=== PATIENT | male | born 1965 | race African-American/Black ===

== ENCOUNTER 2018-04-11 18:03 | Emergency (ER) | payer OTHER ==
[~2018-04-11] VITALS: Ht 162.6 cm; Wt 70.0 kg
[2018-04-11] MEDS ORDERED: METFORMIN (18:26)
[2018-04-11 19:40] LABS: CLARITY URINE CLEAR (CLEAR); COLOR URINE YELLOW (YELLOW); KETONES URINE NEGATIVE (NEGATIVE); LEUKOCYTE ESTERASE URINE NEGATIVE (NEGATIVE); NITRITE URINE NEGATIVE (NEGATIVE); OCCULT BLOOD URINE TRACE (NEGATIVE); PROTEIN URINE NEGATIVE (NEGATIVE); SPECIFIC GRAVITY URINE 1.006 (1.005-1.030); UROBILINOGEN URINE 0.2 E.U./dL (0.2-1.0)
[2018-04-11 21:40] LABS: CHLORIDE 103 mEq/L (98-107)
[2018-04-11 21:41] LABS: BASOPHILS % 0.7 % (0.0-2.0); EOSINOPHILS % 0.6 % (0.0-5.0); HEMOGLOBIN. 12.7 g/dL (14.0-18.0); LYMPHOCYTES % 40.1 % (20.0-50.0); MEAN CORPUSCULAR HEMOGLOBIN 24.6 pg (28.0-32.0); MEAN CORPUSCULAR VOLUME 75.3 fL (80.0-94.0); MEAN PLATELET VOLUME 8.4 fl (7.4-10.4); MONOCYTES % 8.7 % (2.0-8.0); NEUTROPHILS % 49.9 % (40.0-76.0); PLATELET 271 x1000/uL (130-400); RED BLOOD CELL COUNT 5.18 mill/uL (4.7-6.1); RED CELL DISTRIBUTION WIDTH 13.4 % (11.6-14.6)
[2018-04-11] MEDS ORDERED: MAGNESIUM/ALUMINUM HYDROXIDE/SIMETHICONE 30ML UDC PO ONE (23:00)
[2018-04-11 23:21] VITALS: BP 131/87
== END 2018-04-11 23:23 | disposition home or self-care (01) ==
LOC: ER 18:03
DX: R42 Dizziness and giddiness (principal); R53.1 Weakness; R51 Headache; R10.13 Epigastric pain; R35.0 Frequency of micturition; E11.9 Type 2 diabetes mellitus without complications; I10 Essential (primary) hypertension; Z79.899 Other long term (current) drug therapy
CPT/HCPCS: 36415; 80053; 81003; 85025; 93005; 99285

== ENCOUNTER 2025-08-11 19:53 | Emergency (ER) | payer OTHER ==
[~2025-08-11] VITALS: Ht 162.6 cm; Wt 66.0 kg
[~2025-08-11 19:53] MED LIST: METFORMIN
[2025-08-11 20:15] VITALS: O2SAT 100
[2025-08-11] MEDS ORDERED: PILO15DR36 EACHEYE (22:54)
[2025-08-11 23:06] VITALS: BP 152/71; PULSE 52; RESP 18; TEMP 36.7; O2SAT 100
== END 2025-08-11 23:06 | disposition home or self-care (01) ==
LOC: ER 19:53
DX: H40.9 Unspecified glaucoma (principal)
CPT/HCPCS: 99283